=== PATIENT | male | born 1950 | race Caucasian/White ===

== ENCOUNTER 2021-06-04 09:57 | Outpatient (CLI) | payer MEDICARE, SELFPAY ==
--- NOTE | 2021-06-04 09:00 | DI.RAD_ITS ---
Exam(s) XR HIP LT COMPLETE AP PELVIS EXAM: XR HIP LT COMPLETE AP PELVIS CLINICAL HISTORY: L hip pain. TECHNIQUE: 2D digital imaging was performed of the left hip.Three views were obtained. AP pelvis an d lateral left hip views were obtained. COMPARISON: No exams were available for comparison FINDINGS: BONES: No acute fracture is present. No bony destructive lesion is seen. JOINTS: No dislocation present. Moderately severe degenerative changes are seen in the left hip with prominent joint space narrowing. There is near complete loss of the joint space. SOFT TISSUE: Normal. IMPRESSION: Osteoarthritis of the left hip. DATA REPOSITORY: RADIATION DOSE DELIVERED:
== END 2021-06-04 09:58 | disposition home or self-care (01) ==
LOC: DIORS 09:57
PROVIDERS: PCP Nurse Practitioner Family; Referring Provider Nurse Practitioner Family; Visit Provider Student in an Organized Health Care Education/Training Program
DX: M25.552 Pain in left hip (principal); M16.12 Unilateral primary osteoarthritis, left hip
CPT/HCPCS: 99203; 73502

== ENCOUNTER → 2021-07-27 12:46 | Outpatient (BNVA) | payer MEDICARE, SELFPAY | PROVIDERS: PCP Nurse Practitioner Family; Referring Provider Nurse Practitioner Family | DX: Z01.818 Encounter for other preprocedural examination (principal); M16.12 Unilateral primary osteoarthritis, left hip ==

== ENCOUNTER 2021-08-03 02:51 | Outpatient (CLI) | payer MEDICARE, SELFPAY ==
[2021-08-03 10:31] LABS: HCT 43.7 % (40.0-50.0); HGB 14.5 g/dL (13.5-17.5); MCH 31.7 pg (27.0-33.0); MCHC 33.2 % (32.0-36.0); MCV 95.4 fL (80-95); MPV 9.5 fL (8.0-11.0); Platelet Count 222 10^3/uL (130-400); RBC 4.58 10^6/uL (4.36-5.78); RDW 13.2 % (11.8-14.1); RDW-SD 46.7 fL; WBC 6.56 10^3/uL (4.4-10.8)
[2021-08-03 10:59] LABS: BUN 17 mg/dL (7-18); CREATININE 1.1 mg/dL (0.70-1.30); Chloride 101 mmol/L (98-107); Glucose 108 mg/dL (74-106); Potassium 4.2 mmol/L (3.5-5.1); Sodium 140 mmol/L (136-145)
== END 2021-08-03 02:52 | disposition home or self-care (01) ==
LOC: LBO 02:51
PROVIDERS: PCP Nurse Practitioner Family; Visit Provider Student in an Organized Health Care Education/Training Program
DX: M16.12 Unilateral primary osteoarthritis, left hip (principal); Z01.818 Encounter for other preprocedural examination
CPT/HCPCS: 36415; 80048; 85027; 86850; 86900; 86901

== ENCOUNTER 2021-08-03 03:02 | Outpatient (CLI) | payer MEDICARE, SELFPAY ==
[2021-08-03 12:43] LABS: Source Nasal/Nares
[2021-08-03 17:11] LABS: COVID-19 PCR Negative (Negative)
== END 2021-08-03 03:03 | disposition home or self-care (01) ==
LOC: LBO 03:02
PROVIDERS: PCP Nurse Practitioner Family; Visit Provider Student in an Organized Health Care Education/Training Program
DX: Z20.822 Contact with and (suspected) exposure to COVID-19 (principal)
CPT/HCPCS: 36415; 80048; 85027; 86850; 86900; 86901; 87635

== ENCOUNTER 2021-08-05 06:27 | Day surgery (SDC) | payer MEDICARE, SELFPAY ==
[2021-08-05] VITALS (8 sets, daily range): BP systolic 109–149; BP diastolic 42–93; PULSE 64–84; RESP 18–23; TEMP 36–36.4; O2SAT 97–100; BMI 49.2
[2021-08-05] MEDS: Acetaminophen 500 MG TAB 1000 MG PO ×2 (06:26→14:24)
[2021-08-05] MEDS: Celecoxib 200 MG CAP 400 MG PO (06:26)
[2021-08-05] MEDS: Lactated Ringers 1,000 ML 80 ML IV (06:50)
--- NOTE | 2021-08-05 06:55 | ANES.PREOP_ITS ---
General Info Date of Service Date Performed: 08/05/21 Height: 5 ft 7 in Weight: 142.7 kg Body Mass Index (BMI): 49.2 Surgical Procedure: Operation Date: 08/05/21 07:50 Proposed Procedures Side Surgeon p Hip Total Hip Anterior Left Ebenezer Nunez MD Meds Allergies and Home Medications Allergies Allergy/AdvReac Type Severity Reaction Status Date / Time No Known Allergies Allergy Verified 08/05/21 06:19 Home Medication Medication Instructions Recorded allopurinol 300 mg tablet 300 mg PO DAILY 06/04/21 furosemide 40 mg tablet 80 mg PO DAILY tab 06/04/21 losartan 100 mg tablet 100 mg PO DAILY 06/04/21 simvastatin 40 mg tablet 40 mg PO DAILY 06/04/21 aspirin 81 mg tablet,delayed 81 mg PO DAILY 07/27/21 release ibuprofen 400 mg PO Q6H PRN 08/05/21 Current Visit Medications: Current Medications Generic Name Dose Route Start Last Admin Trade Name Freq PRN Reason Stop Dose Admin Acetaminophen 1,000 mg 08/05/21 06:00 08/05/21 06:26 Acetaminophen 500 Mg Tab PO 08/05/21 16:00 1,000 mg PREOP BRETT Administration Celecoxib 400 mg 08/05/21 06:00 08/05/21 06:26 Celecoxib 200 Mg Cap PO 08/05/21 16:00 400 mg PREOP BRETT Administration Tranexamic Acid 1,000 mg/ 60 mls @ 360 mls/hr 08/05/21 06:00 Sodium Chloride IV 08/05/21 16:00 PREOP BRETT Cefazolin Sodium 3,000 mg/ 100 mls @ 200 mls/hr 08/05/21 06:00 Sodium Chloride IVPB 08/05/21 23:59 PREOP BRETT Ringer's Solution 1,000 mls @ 80 mls/hr 08/05/21 06:00 IV 09/03/21 23:59 INFUSION [facility] IV Miscellaneous Supplies 1 each 08/05/21 06:00 Iv Access IV 09/03/21 23:59 DIRECTED BRETT Sodium Chloride 0 ml 08/05/21 06:00 Normal Saline Flush 10 Ml Syr IV 09/03/21 23:59 PRN PRN Sodium Chloride 0 ml 08/05/21 06:00 Normal Saline 10 Ml Vial IJ 09/03/21 23:59 DIRECTED PRN Sterile Water 0 ml 08/05/21 06:00 Water,Injection,Sterile 10 Ml Vial IJ 09/03/21 23:59 DIRECTED PRN [facility] Active Problems Active Problems: Problem Status Onset Code 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 Gout M10.9 Metabolic syndrome X E88.81 Hypertensive disorder I10 Lymphadenopathy R59.1 History of malignant neoplasm of testis Z85.47 Primary osteoarthritis of left hip M16.12 Medical History Active Problem List Loraine type 2a hyperlipoproteinemia (Acute) Gout (Chronic) Metabolic syndrome X (Acute) Hypertensive disorder (Chronic) Lymphadenopathy (Acute) History of malignant neoplasm of testis (Acute) Primary osteoarthritis of left hip (Acute) Medical History Testicular cancer Radiation-1996 Surgical History Surgical History History of appendectomy History of orchiectomy History of tonsillectomy and adenoidectomy Tobacco Smoking/Tobacco Use Status: Never Alcohol Alcohol Intake: current Alcohol intake frequency: 0-2 drinks per day Alcohol type: hard liquor Substance Use Substance use: Never Substance use type: does not use Details: alcohol: t-1 1700, two drinks Vital Signs and Lab Results Vital Signs Most Recent Vital Signs in EMR: Most Recent Vital Signs Temp Pulse Resp BP Pulse Ox 36.1 C L 84 20 149/93 H 97 08/05/21 06:34 08/05/21 06:34 08/05/21 06:34 08/05/21 06:34 08/05/21 06:34 Lab Results Blood Type / Crossmatch: Patient ABO/Rh O Positive 08/03/21 10:26 08/03/21 Antibody Screen NEGATIVE 08/03/21 10:26 08/03/21 Complete Blood Count: White Blood Count 6.56 10^3/uL (4.4-10.8) 08/03/21 10:26 08/03/21 Red Blood Count 4.58 10^6/uL (4.36-5.78) 08/03/21 10:26 08/03/21 Hemoglobin 14.5 g/dL (13.5-17.5) 08/03/21 10:26 08/03/21 Hematocrit 43.7 % (40.0-50.0) 08/03/21 10:08/03/21 Platelet Count 222 10^3/uL (130-400) 08/03/21 10:26 08/03/21 Complete Metabolic Panel: Sodium Level 140 mmol/L (136-145) 08/03/21 10:26 08/03/21 Potassium Level 4.2 mmol/L (3.5-5.1) 08/03/21 10:08/03/21 Chloride Level 101 mmol/L (98-107) 08/03/21 10:08/03/21 Carbon Dioxide Level 28.0 mmol/L (21.0-32.0) 08/03/21 10:08/03/21 Blood Urea Nitrogen 17 mg/dL (7-18) 08/03/21 10:08/03/21 Creatinine 1.1 mg/dL (0.70-1.30) 08/03/21 10:08/03/21 Estimated GFR/1.73 m2 >= 60.00 (mL/min/1.73m2) 08/03/21 10:08/03/21 Calcium Level 9.0 mg/dL (8.5-10.1) 08/03/21 10:08/03/21 Glucose Level 108 mg/dL (74-106) H 08/03/21 10:26 08/03/21 Liver Function Panel: No Data to Display Coagulation Panel: No Data to Display Cardiac Panel: No Data to Display Arterial Blood Gas: No Data to Display Venous Blood Gas: No Data to Display Pancreas Panel: No Data to Display Thyroid Panel: No Data to Display Infectious Disease: Coronavirus (COVID-19)(PCR) Negative (Negative) 08/03/21 11:10 08/03/21 Coronavirus 2019 Source Nasal/Nares 08/03/21 11:10 08/03/21 Blood Cultures: No Data to Display Toxicology Panel: No Data to Display Anesthesia Assessment and Plan Anesthesia History Personal History: No History of Anesthesia Complications Family History: No Family History of Anesthesia Complications Exercise Tolerance Exercise Tolerance: Metabolic Equivalents>4 Pertinent Negatives Pertinent Negatives: No Symptoms of GERD, No Major Cardiovascular Symptoms or Complaints and No Major Pulmonary Symptoms or Complaints Cardiac & Pulmonary Exam Cardiac Exam: Normal S1/S2 Heart Sounds Pulmonary Exam: Clear Bilateral Breath Sounds Implantable Cardiac Device Does patient have a Pacemaker or an ICD?: No Airway Exam Known Difficult Airway: No Mallampati Class: 2 Mouth Opening: Normal (> 3cm) Thyromental Distance: Greater than 3 cm Neck Range of Motion: Full ROM Neck Circumference: Normal Teeth Condition: Normal Dentition ASA Classification ASA Score: ASA 3 Emergency Case?: No NPO Status NPO Status: NPO Clears >2 hours, Solids >8 hours Anesthesia Plan Resuscitation Status: Full Code Anesthesia Technique: Spinal Anesthesia Airway Planned: Natural Airway Monitors Used: Standard Monitors
--- NOTE | 2021-08-05 07:00 | DI.RAD_ITS ---
Exam(s) XR HIP LT IN OR EXAM: XR HIP LT IN OR CLINICAL HISTORY: left total hip anterior TECHNIQUE: 2D and realtime digital imaging was performed. CONTRAST MATERIAL: Refer to procedure report. COMPARISON: CR XR HIP LT COMPLETE AP PELVIS from 06/04/2021 CR XR HIP LT COMPLETE AP PELVIS from 06/04/2021 FINDINGS: Fluoroscopy was provided for Dr. Nunez during the performance of a left total hip replacement. P lease refer to the procedure report for complete details. Ka,r=14.76 mGy IMPRESSION: RADIATION DOSE DELIVERED:
--- NOTE | 2021-08-05 07:25 | PDOC.DSDIS_ITS ---
Documented by User: EZEQUIEL Shultz 08/05/21 07:29 Discharge Plan Disposition Patient Disposition: HOME Condition: Good Discharge Details Reason For Visit: Left EDY Attending Provider: Ebenezer Nunez Primary Care Provider: Kerry Matos Home Meds and New Rx's Prescriptions: New celecoxib [Celebrex] 200 mg capsule 200 mg PO BID Qty: 60 RF: 0 aspirin 81 mg tablet,delayed release (DR/EC) 81 mg PO BID Qty: 60 RF: 0 pantoprazole [Protonix] 40 mg tablet,delayed release (DR/EC) 40 mg PO DAILY Qty: 30 RF: 0 acetaminophen 500 mg capsule 1,000 mg PO Q8H PRN PRNQty: 90 RF: 0 oxycodone 5 mg tablet 5 mg PO Q4H PRNQty: 18 RF: 0 Continued allopurinol 300 mg tablet 300 mg PO DAILY RF: 0 furosemide 40 mg tablet 80 mg PO DAILY RF: 0 losartan 100 mg tablet 100 mg PO DAILY RF: 0 simvastatin 40 mg tablet 40 mg PO DAILY RF: 0 Discontinued aspirin [Adult Aspirin Regimen] 81 mg tablet,delayed release (DR/EC) 81 mg PO DAILY RF: 0 ibuprofen 200 mg Tablet 400 mg PO Q6H PRNRF: 0 Discharge Instructions Additional Instructions: Total Hip Discharge Instructions Activity: The most important activity is to walk. You should try to take short walks a few times a day. You have no restrictions on movement or positioning, but do not try to force what you do. You will find some stiffness and weakness with hip flexion (lifting your knee). Do not try to strengthen this too early, continue to practice walking and stairs and this will come. - Outpatient physical therapy can be helpful to help return you to a normal gait and improve your flexibility and strength. This can start around 2 weeks. For some patients, it?s not necessary. Usually this is determined at the time of discharge or at the first post-operative visit. - You should wear the MARIELA hose on both legs for 2 weeks. Dressing: Keep the surgical dressing in place for at least one week. After the first week it may be removed and replace with light gauze and tape or nothing. It may get wet after 3 days but avoid soaking the dressing. If it gets wet, just lightly pat dry. It is important to always keep some gauze between skin folds, especially when you are sitting. Spend some time with the wound exposed when you are lying flat as the incision does wrinkle onto itself. Medications: - You should take Tylenol and an anti-inflammatory Celebrex as your primary pain control medications. If the Celebrex is too expensive or not covered, please call the office for another alternative (Advil/Ibuprofen or Naproxen/Aleve). - You have been prescribed a stronger pain medication Oxycodone for breakthrough pain, take as needed as prescribed. - You have also been prescribed a stomach acid reduction agent Pantoprozole to help reduce stomach acid and reflux. - You will be taking Aspirin 81mg twice a day for DVT prevention unless instructed otherwise. - If you have constipation you should take Colace or Miralax (both [id number]). It takes most people 3-4 days to have a bowel movement. Follow-up: 2 weeks If you have any acute concerns or questions, please do not hesitate to contact the office at [phone]. You may contact Dr. Nunez with any questions after hours through the hospital at [phone] or on his cell phone at [phone]. Stand Alone Forms: Anesthesia Discharge Inst., Leobardo Bee ([facility]) Referrals: Ebenezer Nunez MD [ [facility] STAFF PHYSICIAN] - Equipment/Supplies: Walker Activity:: Activity as Tolerated Remove Dressings/Wound Care:: Do Not Remove Shower/Bathe:: 72 hours Diet:: As Tolerated Discharge Orders Discharge Orders: Discharge Order (Routine); Ordered 08/05/21 Ordered By: Petra Hines DS: Diagnosis Discharge Diagnosis (1) Primary osteoarthritis of left hip: Status: Acute Documented by User: Ebenezer Nunez MD 08/05/21 13:44 Discharge Plan Disposition Patient Disposition: HOME Condition: Good Discharge Details Reason For Visit: Left EDY Attending Provider: Ebenezer Nunez Primary Care Provider: Kerry Matos Home Meds and New Rx's Prescriptions: New celecoxib [Celebrex] 200 mg capsule 200 mg PO BID Qty: 60 RF: 0 aspirin 81 mg tablet,delayed release (DR/EC) 81 mg PO BID Qty: 60 RF: 0 pantoprazole [Protonix] 40 mg tablet,delayed release (DR/EC) 40 mg PO DAILY Qty: 30 RF: 0 acetaminophen 500 mg capsule 1,000 mg PO Q8H PRN PRNQty: 90 RF: 0 oxycodone 5 mg tablet 5 mg PO Q4H PRNQty: 18 RF: 0 Continued allopurinol 300 mg tablet 300 mg PO DAILY RF: 0 furosemide 40 mg tablet 80 mg PO DAILY RF: 0 losartan 100 mg tablet 100 mg PO DAILY RF: 0 simvastatin 40 mg tablet 40 mg PO DAILY RF: 0 Discontinued aspirin [Adult Aspirin Regimen] 81 mg tablet,delayed release (DR/EC) 81 mg PO DAILY RF: 0 ibuprofen 200 mg Tablet 400 mg PO Q6H PRNRF: 0 Discharge Instructions Additional Instructions: Total Hip Discharge Instructions Activity: The most important activity is to walk. You should try to take short walks a few times a day. You have no restrictions on movement or positioning, but do not try to force what you do. You will find some stiffness and weakness with hip flexion (lifting your knee). Do not try to strengthen this too early, continue to practice walking and stairs and this will come. - Outpatient physical therapy can be helpful to help return you to a normal gait and improve your flexibility and strength. This can start around 2 weeks. For some patients, it?s not necessary. Usually this is determined at the time of discharge or at the first post-operative visit. - You should wear the MARIELA hose on both legs for 2 weeks. Dressing: Keep the surgical dressing in place for at least one week. After the first week it may be removed and replace with light gauze and tape or nothing. It may get wet after 3 days but avoid soaking the dressing. If it gets wet, just lightly pat dry. It is important to always keep some gauze between skin folds, especially when you are sitting. Spend some time with the wound exposed when you are lying flat as the incision does wrinkle onto itself. Medications: - You should take Tylenol and an anti-inflammatory Celebrex as your primary pain control medications. If the Celebrex is too expensive or not covered, please call the office for another alternative (Advil/Ibuprofen or Naproxen/Aleve). - You have been prescribed a stronger pain medication Oxycodone for breakthrough pain, take as needed as prescribed. - You have also been prescribed a stomach acid reduction agent Pantoprozole to help reduce stomach acid and reflux. - You will be taking Aspirin 81mg twice a day for DVT prevention unless instructed otherwise. - If you have constipation you should take Colace or Miralax (both [id number]). It takes most people 3-4 days to have a bowel movement. Follow-up: 2 weeks If you have any acute concerns or questions, please do not hesitate to contact the office at [phone]. You may contact Dr. Nunez with any questions after hours through the hospital at [phone] or on his cell phone at [phone]. Stand Alone Forms: Anesthesia Discharge Inst., Leobardo Bee ([facility]) Referrals: Ebenezer Nunez MD [ [facility] STAFF PHYSICIAN] - Equipment/Supplies: Walker Activity:: Activity as Tolerated Remove Dressings/Wound Care:: Do Not Remove Shower/Bathe:: 72 hours Diet:: As Tolerated Discharge Orders Discharge Orders: Discharge Order (Routine); Ordered 08/05/21 Ordered By: Petra Hines
[2021-08-05] MEDS: ceFAZolin 3,000 MG in Normal Saline 100 ML 200 MG IVPB (08:38)
[2021-08-05] MEDS: Ketorolac 30 MG/ML VIAL (09:25)
[2021-08-05] MEDS: Bupivacaine 0.25% Pres-Free 30 ML VIAL (09:25)
[2021-08-05] MEDS: Bacitracin 30 GM TUBE (11:09)
--- NOTE | 2021-08-05 12:21 | W.ANESPOSTOP ---
Postoperative Evaluation Date, Time and Location Date Performed: 08/05/21 Time Performed: : Patient Location: Day Surgery Unit Vital Signs Most Recent Imported Vital Signs: Most Recent Vital Signs Temp Pulse Resp BP Pulse Ox 36.1 C L 64 20 126/61 99 08/05/21 11:50 08/05/21 11:50 08/05/21 11:50 08/05/21 11:50 08/05/21 11:50 Pain Score Most Recent Pain Score: Most Recent Pain Score Pain Level 0 08/05/21 11:50 Assessment Mental Status: Awake (Alert & Oriented to Patient Baseline) Airway and Respiratory Function: Patent airway with normal (patient baseline) respiratory exam Cardiovascular Function: Hemodynamically Stable Hydration Status: Adequately Hydrated Nausea & Vomiting: No Nausea or Vomiting Pain: Pt. Denies Any Pain Peripheral Nerve Block: Patient did not receive a nerve block
--- NOTE | 2021-08-05 12:55 | IN_ITS ---
Date of service: 08/05/21 Time of Service: 12:55 PT Notes Visit Reasons: Left EDY Physical Therapy Day Surgery Initial Evaluation Date: 08/05/2021 Referring Doctor: EZEQUIEL Shultz PT Orders: PT CONSULT: S/P Ortho Surgery Precautions: WBAT on L LE with AD. Patient Profile/Admitting Diagnosis: Patient is a 71-year-old male with primary osteoarthritis of the L hip and is S/P left total hip arthroplasty on postoperative day 0. PMHX: Active Problem List (Updated 07/28/21 @ 15:30 by EZEQUIEL Ratliff) Primary osteoarthritis of left hip (Acute) History of malignant neoplasm of testis (Acute) Lymphadenopathy (Acute) Hypertensive disorder (Chronic) Metabolic syndrome X (Acute) Gout (Chronic) Loraine type 2a hyperlipoproteinemia (Acute) Medical History (Updated 07/28/21 @ 15:30 by EZEQUIEL Ratliff) Testicular cancer Surgical History (Updated 07/28/21 @ 15:30 by EZEQUIEL Ratliff) History of appendectomy History of orchiectomy History of tonsillectomy and adenoidectomy Social History/Home Situation: Lives with in a private home with no steps to enter but with a flight of steps leading to their bedroom. No falls in the past year. Equipment Owned/DME: Bilateral axillary crutches Subjective: Reports numbness in bilateral gluteal areas. Determined that he will be able to manage the steps to the bedroom tonight. states that he may sleep on his recliner on the main floor if it will be a challenge for him. Reports no pain stating that his hip hurt a lot more prior to surgery. Objective: General Observation: Supine in stretcher. TEDS to B legs. Mepilex Ag over surgi angelica incision. Obese. Mental Status: Alert and oriented x 4 Pain: Denies ROM: Right Lower Extremity: Hip flexion WFL. Hip abduction WFL. Knee flexion WFL. Ankle dorsiflexion WFL. Ankle plantarflexion WFL. Left Lower Extremity: Hip flexion WFL. Hip abduction WFL. Knee flexion WFL. Ankle dorsiflexion WFL. Ankle plantarflexion WFL. Strength: Right Lower Extremity: Hip flexors 5/5. Hip abductors 5/5. Knee flexors 5/5. Knee extensors 5/5. Ankle dorsiflexors 5/5. Ankle plantarflexors 5/5. Left Lower Extremity:Hip flexors 4/5. Hip abductors 4/5. Knee flexors 5/5. Knee extensors 4/5. Ankle dorsiflexors 5/5. Ankle plantarflexors 5/5. Sensation: Numbness in bilateral gluteal areas otherwise intact as to pain pressure in bilateral lower extremities Bed Mobility/Transfers: Supine to sit hand-held assist with HOB flat Sit to stand contact-guard assist Stand to sit standby assist Bed to chair standby assist Gait: Instructed patient with level surface ambulation using front wheeled walker with step through gait pattern for 150 feet with minimal verbal cueing provided for safe technique. ELECTRIC TRAIN DRIVER Kimmie providing wheelchair follow for safety. Balance: Static Sitting: Normal Dynamic Sitting: Normal Static Standing: Fair Dynamic Standing: Fair Special Tests: Mobility Limitations Standardized Measure [facility] AM-PAC 6 clicks Basic Mobility Inpatient Short Form: Raw Score: 22 CMS Score: 21% deficit Informed Consent/Education: Patient instructed in purpose of PT consult. Education and training on initial set of exercises that can be done at home have been completed with patient. Reinforced use of the Timely analia Assessment: Tez demonstrates functional mobility decline, strength deficits in the left hip, and the need for front wheeled walker all transfer and ambulation test is to reduce fall risk and maximize independence. Patient presents with clinical signs and symptoms consistent with current/admitting diagnoses that have resulted to mobility limitations and gait instability as demonstrated by the following impairment level findings: 1. Decreased strength to left hip major muscle groups 2. Impaired standing balance Impairments are contributing to the following functional limitations: 1. Inability to safely ambulate without assistive device 2. Increase completion time for mobility ADL performance 3. Increased fall risk Patient is assessed as a 59706 moderate complexity based on the following: History: 71 [id number] with impairment level findings, functional limitations, and past medical history as indicated above Examination: Demonstrable impairment in strength, balance, and mobility level with underlying impairments and functional limitations as documented above Presentation: Evolving Decision Makin moderate complexity Goals: N/A. PT evaluation and 1-2 treatment sessions only for functional mobility training using recommended AD and for HEP instruction. Plan of Care/Treatment Plan: N/A. PT evaluation and 1-2 treatment session only for functional mobility training using recommended AD and for HEP instruction. DISCHARGE RECOMMENDATIONS: [] Home with no services [] [] Home with services [specify] [X] Home with outpatient PT. Home when medically cleared by orthopedic surgeon. May benefit outpatient PT services in order to facilitate return to independent community ambulation without an assistive device and to help with full return to vocational activities. Will benefit from the use of a front wheeled walker to maximize independence at home. [] SNF for continued rehabilitation [] [] [facility] [] [] SNF versus LTC based on ability to participate and progress [] TREATMENT CODE/TIME: 34482 x 20 minutes, 23439 x 33 minutes beginning at 12:55 PM. Thank you for the opportunity to participate in the care of this patient. Kusum Noble PT, DPT, CLT [facility] [place], [place]
--- NOTE | 2021-08-05 21:25 | W.PM.OP ---
Date of service: 08/05/21 Time of Service: 11:05 Operative Note Operative Note DATE OF PROCEDURE: 08/05/21 PRE-OP DIAGNOSIS: Left Hip Osteoarthritis POST-OP DIAGNOSIS: same PROCEDURE: Left Anterior Total Hip Arthroplasty with Intraoperative Navigation SURGEON: Ebenezer Nunez CERTIFIED RECREATIONAL THERAPIST: Petra Hines ANESTHESIA TYPE: Spinal Refer to Anesthesia Record ESTIMATED BLOOD LOSS: 350 PATHOLOGY: none sent TOURNIQUET TIME: 0 COMPLICATIONS: None Patient was transported to: PACU Patient's condition: stable Implants: 1. Depuy Vernon Acetabular Component, 54 mm 2. Depuy Acetabular Liner, [id number] 3. Depuy Actis High Offset Collared Femoral Stem, Size 8 4. Depuy Altrx Ceramic Femoral Head, Size 36+5mm Indications: I have seen Tez in clinic for symptoms of hip arthritis, confirmed with radiographic findings. Tez has exhausted nonoperative methods and was having significant limitations in daily function and desired better function and less pain. I discussed the technical details of a hip replacement. I explained the risks of the procedure to include, but not limited to, bleeding, infection, pain, stiffness, fracture, damage to nerves and vessels, damage to muscles and tendons, loosening, instability, leg length inequality, need for repeat procedure, blood clot and cardiopulmonary demise. Despite these risks, Tez elected to proceed. Findings: There was significant signs of arthritis throughout the hip. Procedure Description: Tez was greeted in the preoperative holding area where the correct side was identified and marked. The consent was reviewed with the patient and signed. The history and physical was updated. All questions were answered. He was taken back to the operating room. A spinal anesthestic was then administered. The feet were wrapped with cast padding and Coban and then placed into the boot liners and then into the boots. Care was taken to protect the skin and make sure the heels were fully down and the boots were stable. The patient was then positioned onto the HANA table. Both legs were held in a neutral position. SCDs were applied. The patient was then slid down onto a peroneal post. Prophylactic antibiotics in the form of Cefazolin were administered. 1g of Tranxemic Acid was given intravenously within 30 minutes of incision. The left leg was then prepped with Chloraprep and draped in a standard fashion. A second prep with Chloraprep was performed prior to placement of a shower-curtain type drape with Iodine impregnated skin protection. A timeout to confirm correct identity, side and site, procedure, allergies, anesthesia, and medical concerns was performed. An obliquely oriented incision was made starting lateral to the ASIS and running distal over the Tensor Fascia Chasity (TFL) muscle belly toward the fibular head, approximately 10cm. The skin and soft tissue was dissected sharply, through Shweta?s fascia, and to the fascia of the TFL. With the fascia and superior border of the IT band identified, the fascia was incised with a new knife just above any perforators from the IT band. The TFL muscle belly was bluntly dissected away from the fascia and moved laterally. The fat between TFL and rectus was identified to ensure the dissection was not within the TFL. Blunt dissection created space between abductors and the capsule and retractor was placed over the lateral femoral neck. The fibers of the rectus femoris tendon were identified and these were freed from the anterior capsule. A second cobra retractor was placed around the medial femoral neck. The TFL was further retracted laterally to show the deep fascia. Careful dissection through this layer identified three main crossing vessels of the lateral femoral circumflex. These were cauterized in multiple locations and then cut without any noticeable bleeding. The TFL was further released bluntly from the deep fascia to expose anterior hip capsule and fat The Favian orthopaedic retractor was then placed beneath the TFL and against sartorius and medial soft tissues to protect and retract the soft tissues. A T-capsulotomy was then performed starting at the superior lateral acetabulum and moving distally to the intertrochanteric ridge. These capsular flaps were tagged with a No. 1 Ethibond and elevated from within. The capsular flaps were released to the shoulder of the lateral neck and to the lesser trochanter to give excellent visualization of the proximal femur. A neck osteotomy was performed using an oscillating saw based on preoperative templates. This cut started in the shoulder and of the lateral neck and exited medially. The saw was at all times directed medially to avoid injury to the greater trochanter. Gross traction was applied to the leg and the osteotomy opened. The femoral head was removed with a corkscrew, making sure to protect the TFL on its exit. Traction was released after head removal. This was measured on the back table to determine the starting reamer size. Portions of the rectus obscuring visualization were minimally elevated off the superior acetabulum. An anterior retractor was placed over the anterior wall between capsule and labrum and attached to the Gripper retraction system. The femur was rotated to 90 degrees and medial capsule was fully released until the lesser trochanter was palpable and visible; the femur was returned to 30 degrees. A posterior retractor was placed similarly between capsule and labrum. This provided excellent visualization. The contents of the cotyloid fossa were removed with electrocautery and the labrum was removed with a knife. There was a notable floor osteophyte. There was significant chondromalacia of the superior acetabulum. Acetabular reaming began with a 50mm reamer. This first reaming was directed anterior to posterior and medial to get down to the true floor. This was inspected and reamed until the true floor was reached. The anterior retractor was then released and entry and exit was provided by traction on the capsular flaps. I then reamed sequentially up to a 54mm reamer where good fit was obtained. The larger reamers were oriented based on anatomical reference of the anterior and lateral ledesma to ensure proper abduction and anteversion. Positioning and size was confirmed with the fluoroscopy. A 54mm Depuy Vernon acetabular component was selected. The acetabulum was reamed around the periphery with the selected acetabular size to prevent a rim fit. The deep tissues were irrigated. The acetabular component was then impacted in a position of about 40-45 degrees of abduction and 15-20 degrees of anteversion, using the patient?s anatomy as the ultimate landmark. Fluoroscopy was used to confirm this. There was excellent school librarian of the acetabular component and the inserting handle was removed. The acetabular liner, Depuy [id number] polyethylene liner, was inserted and lined up with the tines of the acetabular component. There was no soft tissue interposition. The liner was then impacted into position and confirmed to be well-seated. A portion of the maddy-articular cocktail was then injected around the acetabulum into the capsule and periosteum. This cocktail consisted of 50cc of 0.25% Bupivicaine and 20cc of Exparel and 30mg of Ketorolac. The leg was rotated to 120 degrees. Any remaining medial capsule was released until the lesser trochanter was easily palpable. A retractor was placed medially. The lateral capsule was further released into the shoulder to allow access to the greater trochanter. A Amaya retractor was placed over the greater trochanter which allowed the trochanter to flip in front of the capsule for excellent exposure. The leg was brought down into maximal extension and 20 degrees of adduction while ensuring there was no impingement on the acetabulum. Any remnant capsule within the trochanter was released. Piriformis and obturator externis were identified and protected. There was excellent access to the proximal femur. The lateral neck remnant was removed with a rongeur. A blunt canal probe was used to identify the canal and trajectory for later broaching. A box osteotome initiated the broach course. Broaching then began with a starter and then size 0 Actis broach. This was inserted manually around the trochanter and into the canal before mallet blows. The broach was seated to the neck cut level based on the neck cut and the preoperative template. Sequential broaching was continued by hand until a tight fit was obtained with good rotational control of the femur. A trial standard neck was inserted along with a +5 trial head. The leg was brought out of extension and adduction and then reduced with traction and internal rotation. The hip seem to want to have a externally rotated and anterior position which I felt was actually being caused by the bed and his soft tissues. However, it was not stable and therefore I switched out to a high offset neck. At this point, the leg was stable anteriorly in a position of 30 degrees of extension and 90 degrees of external rotation. Fluoroscopy was used to ensure there was no fracture and the stem was seated well. Leg lengths were checked with an AP pelvis and pelvic reference points. [employer] navigation system was used to confirm appropriate positioning and leg length and offset. Once content with the desired offset and leg lengths, the leg was brought back into extension, external rotation and adduction. The periosteum and surrounding tissue was injected with remaining portion of the maddy-articular cocktail. The proximal femur was irrigated as well as the deep tissues. The Depuy Actis high offset collared stem, size 8, was then manually inserted into the proximal femur making sure to control rotation. It was then malleted into position with light blows, giving breaks to allow bone expansion and decrease risk of fracture. The selected Depuy Altrx Ceramic Head, size 36+5mm, was then placed onto the clean and dry trunnion and secured with impaction onto the tapered fit. The leg was brought back out of extension and adduction and reduced with traction and internal rotation. Stability was confirmed with no shuck at 90 degrees of external rotation and 30 degrees of extension. No impingement through range of motion arc. Final x-ray images were obtained with fluoroscopy to confirm adequate positioning and no intraoperative fracture. The deep tissues were thoroughly irrigated with Irrisept chlorhexadine solution. The capsule was then reapproximated with the previously placed Ethibond sutures. The TFL fascia was finally closed with a No. 2 Stratafix, barbed suture. Deep tissues were then reapproximated with 0 Vicryl and a running 2-0 Vicryl. The skin was closed with a running 4-0 Monocryl in a subcuticular fashion. This was reinforced with skin glue. A Mepilex silver dressing was applied. At the end of the case, all counts were correct. Tez was transferred to the hospital bed without difficulty and suffering no apparent complication. Tez has a good prognosis. Physical therapy will start today and without restrictions, weight-bearing as tolerated. Aspirin 81mg BID will be used for DVT prophylaxis.
== END 2021-08-05 14:45 | disposition home or self-care (01) ==
PROVIDERS: PCP Nurse Practitioner Family; Visit Provider Student in an Organized Health Care Education/Training Program
PROC: (CPT 27130; principal; 2021-08-05 07:30)
DX: M16.12 Unilateral primary osteoarthritis, left hip (principal); I10 Essential (primary) hypertension; E78.00 Pure hypercholesterolemia, unspecified
CPT/HCPCS: 20985; 27130; C1776; 97162; 97530; 73501; J0690; J1885; J2250; J2370; J2405

== ENCOUNTER 2021-08-20 11:36 | Outpatient (CLI) | payer MEDICARE, SELFPAY ==
--- NOTE | 2021-08-20 10:46 | DI.RAD_ITS ---
Exam(s) XR HIP LT COMPLETE AP PELVIS EXAM: XR HIP LT COMPLETE AP PELVIS INDICATION: post op. COMPARISON: CR XR HIP LT COMPLETE AP PELVIS from 06/04/2021 XR HIP LT IN OR from 08/05/2021 TECHNIQUE: 2D digital imaging was performed. FINDINGS: There is a left hip prosthesis with satisfactory alignment. No no abnormal surrounding lucencies. R ight hip joint space well maintained. Mild right acetabular spurring. Mild spurring inferior SI randall nts. IMPRESSION: Unremarkable left hip prosthesis. DATA REPOSITORY: RADIATION DOSE DELIVERED:
== END 2021-08-20 11:37 | disposition home or self-care (01) ==
LOC: DIORS 11:36
PROVIDERS: PCP Nurse Practitioner Family; Referring Provider Nurse Practitioner Family; Visit Provider Student in an Organized Health Care Education/Training Program
DX: Z96.642 Presence of left artificial hip joint (principal); Z47.1 Aftercare following joint replacement surgery
CPT/HCPCS: 73502

== ENCOUNTER → 2021-09-17 08:48 | Outpatient (BNVA) | payer MEDICARE, SELFPAY | PROVIDERS: PCP Nurse Practitioner Family; Referring Provider Nurse Practitioner Family; Visit Provider Student in an Organized Health Care Education/Training Program | DX: Z47.1 Aftercare following joint replacement surgery (principal); Z96.642 Presence of left artificial hip joint ==

== ENCOUNTER 2023-01-17 14:10 | Outpatient (CLI) | payer MEDICARE, SELFPAY ==
--- NOTE | 2023-01-17 14:05 | DI.RAD_ITS ---
Exam(s) XR HIP LT AP LAT ONLY EXAM: XR HIP LT AP LAT ONLY CLINICAL HISTORY: ANNUAL F/U L [facility]. TECHNIQUE: 2D digital imaging was performed. Two images were obtained. AP and lateral views were ob tained. COMPARISON: CR XR HIP LT COMPLETE AP PELVIS from 08/20/2021 FINDINGS: BONES: There are stable post operative changes present. No fracture or dislocation. JOINTS: The orthopedic hardware is in good position. No evidence of hardware loosening. SOFT TISSUE: Normal. IMPRESSION: Stable postoperative changes. DATA REPOSITORY: RADIATION DOSE DELIVERED:
== END 2023-01-17 14:11 | disposition home or self-care (01) ==
LOC: DIORS 14:12
PROVIDERS: Visit Provider Student in an Organized Health Care Education/Training Program
DX: Z47.1 Aftercare following joint replacement surgery (principal); Z96.642 Presence of left artificial hip joint
CPT/HCPCS: 99213; 73502